=== PATIENT | female | born 1965 | race Caucasian/White ===

== ENCOUNTER → 2017-01-06 | Outpatient (CLI) | payer BC | LOC: BHSO 14:49 | DX: F33.42 Major depressive disorder, recurrent, in full remission (principal) ==

== ENCOUNTER → 2017-05-11 | Outpatient (CLI) | payer BC | LOC: MC.RAD 10:53 | DX: Z12.31 Encounter for screening mammogram for malignant neoplasm of breast (principal) ==

== ENCOUNTER → 2017-08-04 | Outpatient (CLI) | payer BC | LOC: BHSO 10:46 | DX: F33.42 Major depressive disorder, recurrent, in full remission (principal) | CPT/HCPCS: G0463 ==

== ENCOUNTER → 2018-07-06 | Outpatient (CLI) | payer BC ==
[2018-07-06 15:40] LABS: BASO % 0.3 % (0.0-2.0); EOS % 0.2 % (0-4.0); HEMATOCRIT 40.3 % (37.0-47.0); HEMOGLOBIN 12.6 g/dl (12.5-16.0); LYMPH # 0.5 (1.2-3.4); LYMPH % 8.7 % (20.0-51.0); MEAN CELL VOLUME 87 fl (80.0-100.0); MEAN CORPUSCULAR HEMOGLOBIN 27 pg (27.0-31.0); MEAN CORPUSCULAR HGB CONC 31 g/dl (33.0-37.0); MEAN PLATELET VOLUME 10.4 fl (7.4-10.4); MONO # 0.5 (0.1-0.6); MONO % 8.6 % (1.7-9.3); PLATELET COUNT 225 K/mm3 (130-400); RED BLOOD COUNT 4.61 M/mm3 (4.10-5.30); REDCELL DISTRIBUTION WIDTH-CV 14.3 % (11.5-14.5)
[2018-07-06 15:49] LABS: ALBUMIN 3.9 gm/dL (3.5-5.0); BILIRUBIN,TOTAL 0.9 mg/dL (0.0-1.0); CALCIUM 8.8 mg/dL (8.4-10.2); CREATININE, serum 0.77 mg/dL (0.52-1.25); POTASSIUM 3.5 mmol/L (3.4-5.0); TOTAL PROTEIN 7.3 gm/dL (6.4-8.2)
== END ==
LOC: COL.RAD 15:00
PROVIDERS: Family Medicine
DX: K11.21 Acute sialoadenitis (principal)
CPT/HCPCS: Q9967

== ENCOUNTER → 2018-10-10 | Outpatient (CLI) | payer BC | LOC: BHSO 09:13 | DX: F33.42 Major depressive disorder, recurrent, in full remission (principal) | CPT/HCPCS: G0463 ==

== ENCOUNTER → 2019-01-04 | Outpatient (CLI) | payer BC | LOC: MC.RAD 15:39 | DX: Z12.31 Encounter for screening mammogram for malignant neoplasm of breast (principal) ==

== ENCOUNTER 2023-11-25 06:42 | Day surgery (SDC) | payer BC ==
[~2023-11-25] VITALS: Ht 160 cm; Wt 141.1 kg
[~2023-11-25 06:42] MED LIST: LR 1,000 ML IV SCH; Ondansetron 4 MG/2 ML VIAL IV PRN
[2023-11-25] MEDS ORDERED: PHOS LO PO (07:24)
[2023-11-25] MEDS ORDERED: XANAX 0.5MG0.5 MG PO (07:24)
[2023-11-25] MEDS ORDERED: ZYRTEC10MGSGL (07:25)
[2023-11-25] MEDS ORDERED: CALCIUM 600MG+D1 TAB PO (07:25)
[2023-11-25] MEDS ORDERED: LEXAPRO 10MG10 MG PO (07:26)
[2023-11-25] MEDS ORDERED: ZESTRIL 20MG TA20 MG PO (07:27)
[2023-11-25] MEDS ORDERED: PREVACID SOLUTA15 M1 PO (07:27)
[2023-11-25] MEDS ORDERED: MULTIPLE VITAMI1 CAP PO (07:28)
[2023-11-25 07:44] VITALS: BP 137/81; PULSE 105; TEMP 98.3
[2023-11-25 09:10] VITALS: BP 158/83; PULSE 104; TEMP 98.1
[2023-11-25 09:25] VITALS: BP 142/78; PULSE 100
--- NOTE | 2023-11-25 09:40 | NUR ---
0910 RETURNS TO ROOM 4 PER CART. AWAKE, ALERT. RESP UNLABORED. AMBULATES TO RECLINER WITH STANDBY ASSIST. DENIES NAUSEA OR ABD PAIN. VITAL SIGNS OBTAINED. CALL LIGHT AT SIDE. 0917 DR. BELTRAN HERE TO VISIT WITH PATIENT 0925 [place] PO JUICE WITHOUT NAUSEA. DISCHARGE INSTRUCTIONS REVIEWED. PATIENT VERBALIZES UNDERSTANDING. COPY PROVIDED IN DISCHARGE FOLDER 4080 DRESSES SELF
== END 2023-11-25 09:40 | disposition home or self-care (01) ==
LOC: SDCO 06:42
DX: Z12.11 Encounter for screening for malignant neoplasm of colon (principal); D12.2 Benign neoplasm of ascending colon; D12.5 Benign neoplasm of sigmoid colon; K57.30 Diverticulosis of large intestine without perforation or abscess without bleeding
CPT/HCPCS: J2704; J7120